=== PATIENT | female | born 1950 | race Caucasian/White ===

== ENCOUNTER 2017-11-16 10:42 | Emergency (ER) | payer OTHER ==
[~2017-11-16] VITALS: Ht 165.1 cm; Wt 108.2 kg
[2017-11-16] MEDS ORDERED: NAPROXEN500 MG PO (13:11)
[2017-11-16 13:50] VITALS: BP 146/84
== END 2017-11-16 13:51 | disposition home or self-care (01) ==
LOC: EME 10:42
DX: M76.62 Achilles tendinitis, left leg (principal); M77.32 Calcaneal spur, left foot
CPT/HCPCS: 73630; 99281; 99283